=== PATIENT | female | born 1975 | race Two or more races ===

== ENCOUNTER 2025-06-07 16:19 | Emergency (ER) | payer OTHER ==
[~2025-06-07] VITALS: Ht 170.2 cm; Wt 89.8 kg
[2025-06-07] MEDS ORDERED: ARBLI10 MG/1 ML (16:34)
[2025-06-07] MEDS ORDERED: CARDIZEM30 MG (16:34)
[2025-06-07] MEDS ORDERED: ORPHENADRINE CITRATE 30 MG/ML AMPUL IM STA (18:01)
[2025-06-07] MEDS ORDERED: DEXAMETHASONE SODIUM PHOSPHATE 4 MG/ML VIAL IM STA (18:01)
[2025-06-07] MEDS ORDERED: ACETAMINOPHEN WITH CODEINE 1 UDTAB TABLET PO STA (18:02)
[2025-06-07] MEDS ORDERED: KETOROLAC TROMETHAMINE 60 MG VIAL IM STA (18:02)
== END 2025-06-07 20:20 | disposition home or self-care (01) ==
LOC: ER 16:19
DX: M54.40 Lumbago with sciatica, unspecified side (principal)